=== PATIENT | female | born 1945 | race Caucasian/White ===

== ENCOUNTER → 2016-09-12 | Outpatient (CLI) | payer OTHER ==
[~2016-09-12] VITALS: Ht 157.5 cm; Wt 66.5 kg
[~2016-09-12] MED LIST: B-12 SQ; CLONAZEPAM 1 MG1 M1 PO; ESTRACE2 MG PO; FOLIC ACID 1 MG1 MG PO; IBUPROFEN 200200 M1 PO; IMURAN 50MG TAB50 M1 PO; LIALDA1.2 GM PO; LIPITOR 20 MG T20 M1 PO; MULTIVITAMINS1 EAC7 PO; NEURONTIN 300300 M1 PO; PRAVACHOL40 MG PO; PREDNISONE 2.52.5 MG PO; TRAMADOL 50 MG50 MG PO; TYLENOL PM EX-1 EACH PO; VIACTIV MULTI-1 EACH PO; VIACTIV SOFT C1 EACH PO
[2016-09-12 10:56] VITALS: BP 126/61
== END | disposition home or self-care (01) ==
LOC: PAIN 09-11 08:49
DX: M25.511 Pain in right shoulder (principal); M54.9 Dorsalgia, unspecified; K21.9 Gastro-esophageal reflux disease without esophagitis; Z90.710 Acquired absence of both cervix and uterus

== ENCOUNTER → 2016-10-03 | Outpatient (CLI) | payer OTHER ==
[~2016-10-03] VITALS: Ht 157.5 cm; Wt 66.2 kg
[~2016-10-03] MED LIST changes: +APAP500 PO
--- NOTE | ~2016-10-03 | HPC ---
[facility] [address] [place] [address] PAIN MANAGEMENT CONSULTATION Name: HUSSAIN CORREIA [id number] Admission: 10/03/16 Attend Phys: Vineet Palacios DO Discharge: Date of : 43 Report #: [id number] THIS REPORT FOR: //name// CC: Vineet Denis MD DATE OF SERVICE: 10/03/2016 CHIEF COMPLAINT: Neck pain, right upper extremity pain and paresthesias. HISTORY OF PRESENT ILLNESS: As you know, the patient is a very pleasant 70-year-old female who has been seen by [facility] for cervical radiculopathy. The patient was started on gabapentin per her request at last visit as she did not wish to undergo interventional treatments. She indicates side effects to the gabapentin of somnolence, decreased mental acuity, disorientation and confusion when she escalated from 300 to 600 mg dose, even with a reduction back to 300 mg she is experiencing some side effects. She returns today to discuss treatment options. She does indicate the chiropractic manipulation has been somewhat beneficial in alleviating her symptoms and she wishes to follow a conservative course of treatment at this time. She denies injury or trauma that may have led to progression of pain. Other than the side effects to the gabapentin that is the only change in her medical history over the last little bit of time. ALLERGIES: SULFA. CURRENT MEDICATIONS: Prednisone, mesalamine, Estrace, multivitamin, ibuprofen, atorvastatin, calcium carbonate, gabapentin and acetaminophen. SOCIAL HISTORY: The patient denies tobacco, IV or illicit drug use. Admits to approximately 5 glasses of wine per week. She is retired. She is accompanied by her who is present in room today. PHYSICAL EXAMINATION: VITAL SIGNS: Blood pressure 115/54, pulse 74, respiratory rate 16, unlabored. The patient is 100% on room air, height 5 feet 2 inches tall, weight 146 pounds, BMI calculated 26.7. GENERAL: Well developed, well nourished, well-hydrated 70-year-old female appearing stated age, placing current pain score at around 1-2/10. HEENT: Normocephalic, atraumatic. Pupils equal, round, reactive to light. EXTREMITIES: Show no clubbing, no cyanosis, no edema. MUSCULOSKELETAL: Spurling's test remains positive. Cervical provocation testing including extension, rotation, lateral flexion all intensify cervical pain. Muscle bulk and tone equal and symmetrical in upper extremities. [address] [address] PAIN MANAGEMENT CONSULTATION Name: HUSSAIN CORREIA Room #: REG [facility]#: [id number] Admission: 10/03/16 Attend Phys: Vineet Palacios DO Discharge: Date of : 43 Report #: [id number] ASSESSMENT: 1. Symptomatic cervical radiculopathy. 2. Displacement of a cervical intervertebral disk with radiculopathy. 3. Cervical spondylosis with radiculopathy. 4. Cervical spinal stenosis. 5. Chronic intractable pain. 6. Medication intolerance. PLAN: 1. The patient returns today in followup visit having difficulty with gabapentin. She is not sure whether or not her pain has improved as the dizziness, disorientation and confusion she received with the 600 mg dose has made it impossible for her to function. She has reduced back to the 300 mg dose as reporting pain is 1-2/10, continues to experience paresthesias, but is also concerned about dizziness and disorientation. We have requested the patient discontinue the use of the gabapentin at this time, stop for the next 3 days, if her dizziness, disorientation and confusion improves gabapentin was the source, if no improvement in symptoms other work up needs to be begun. The patient will stop the gabapentin today. 2. The patient was provided samples of Lyrica. If she notes symptoms of gabapentin fade we can try her on Lyrica 50 mg dose 1 tab p.o. at bedtime for 7 nights then increase to 100 mg, if 100 mg is too disorientating and confusing she should use a 75 mg dose escalating only 25 mg at the first dose jump. She was given samples of these medications today. We will review efficacy at followup visit. 3. We did discuss the possibility of starting the patient on a cervical epidural injection. She wishes to delay these intervention treatments until which time her pain intensifies or she is unable to take medications to control symptoms. We will discuss this at followup visit. By: [id number] Vineet Palacios DO /nt
[2016-10-03 10:13] VITALS: BP 115/54
== END ==
LOC: PAIN 08:59
DX: M47.22 Other spondylosis with radiculopathy, cervical region (principal); M48.02 Spinal stenosis, cervical region; G89.29 Other chronic pain; Z87.891 Personal history of nicotine dependence

== ENCOUNTER → 2017-09-18 | Outpatient (CLI) | payer OTHER ==
[~2017-09-18] VITALS: Ht 157.5 cm; Wt 67.0 kg
[~2017-09-18] MED LIST changes: +MOBIC15 MG PO; +ROXICODONE5 MG PO
--- NOTE | ~2017-09-18 | HPC ---
[facility] [address] [place] [address] PAIN MANAGEMENT CONSULTATION Name: HUSSAIN CORREIA Room #: [facility] [id number] Admission: 09/18/17 Attend Phys: Vineet Palacios DO Discharge: Date of : 43 Report #: [id number] THIS REPORT FOR: //name// CC: Vineet Denis MD DATE OF SERVICE: 09/18/2017 CHIEF COMPLAINT: Neck pain, right upper extremity pain with paresthesias. HISTORY OF PRESENT ILLNESS: As you know, the patient is a very pleasant 71-year-old female who returns today in followup visit requesting to discuss treatment options for cervical radicular symptoms. She indicates pain begins in the neck, radiates to the right arm all the way down into the hand. 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 She places current pain score 5-6/10. She states riding in a car, turning her head, looking down using her right upper extremity exacerbate symptoms; ice packs, rest tend to improve pain. She has been referred back to our clinic to discuss treatment options. The patient states she has sought chiropractic manipulation and massage therapy, which provided transient improvement in symptoms, no long-term therapy. She returns requesting a cervical epidural injection under fluoroscopic guidance to address pain as well as requesting the possibility of beginning medication management to address symptoms as we await improvement from either epidural injections or surgical options. ALLERGIES: SULFA. CURRENT MEDICATIONS: Tylenol ES 500 mg once a day, calcium carbonate 1 tab per day, atorvastatin 20 mg per day, ibuprofen 200 mg 3 times a day, multivitamin 1 tab per day, Estrace 2 mg once a day, Lialda 1.2 grams 2 tablets per day, prednisone 2.5 mg once a day. SOCIAL HISTORY: The patient denies tobacco, IV or illicit drug use. Admits to approximately 5 glasses of wine per week. She is retired. She is accompanied by her who is present in the room today. PQRS: The patient has osteoarthritis, no rheumatoid arthritis. She places pain intensifying to 6/10. She is not a fall risk, has not had a fall in last 3 months. She is not on blood thinners. She is not treated for hypertension. She has not been on opioids for greater than 6 weeks. She has a low assessment risk for opioid dependency. Functional assessment tool 54/70 indicating severe interference of daily activities secondary to pain. [address] [address] PAIN MANAGEMENT CONSULTATION Name: HUSSAIN CORREIA Room #: REG [facility] [place].#: [id number] Admission: 09/18/17 Attend Phys: Vineet Palacios DO Discharge: Date of : 43 Report #: [id number] PHYSICAL EXAMINATION: VITAL SIGNS: Blood pressure 120/64, pulse 85, respiratory rate 20, unlabored. The patient is 98% on room air. Height 5 feet 2 inches tall, weight 147.8 pounds, BMI calculated 27.0. GENERAL: Well-developed, well-nourished, well-hydrated 71-year-old female appearing her stated age, placing current pain score 5-6/10. HEENT: Normocephalic, atraumatic. Pupils equal, round, reactive to light. Extraocular muscles are intact. Sclerae nonicteric without injection. NEUROLOGIC: Cranial nerves 2-12 grossly intact. Speech is fluent. LUNGS: Clear. No wheeze, rhonchi or rales. CARDIOVASCULAR: Regular. No appreciable gallop, no rub. ABDOMEN: Soft, nontender. EXTREMITIES: Show no clubbing, no cyanosis, no edema. MUSCULOSKELETAL: Upper extremity strength is symmetrical 5/5, some giveaway strength noted with biceps flexion and triceps extension on the right when compared to left. Spurling's test positive on the right. Muscle bulk and tone equal and symmetrical in upper extremities. Deep tendon reflexes are symmetrical at biceps, brachioradialis and triceps. ASSESSMENT: 1. Cervical radiculopathy. 2. Displacement of a cervical intervertebral disk with radiculopathy. 3. Cervical spondylosis with radiculopathy. 4. Cervical spinal stenosis. 5. Chronic intractable pain. PLAN: 1. The patient has returned today in followup visit with what appears to be recurrent cervical radicular symptoms involving right upper extremity. This is not dissimilar to the evaluation we had on 10/03/2016. We have discussed with the patient treatment options for cervical radicular symptoms. These would include physical therapy, stretching exercise, core strengthening. We discussed medication management, the addition of a neuropathic pain medication. We discussed cervical epidural injections and surgical options. After reviewing the risks and benefits of all proposed treatment options, the patient requested a cervical epidural injection. The patient was advised risks and benefits of a cervical epidural injection. These risks include but not necessarily limited to bleeding, bruising, infection, worsening pain, no relief of pain, also risk of temporary or permanent muscle weakness, temporary or permanent nerve damage, possible paralysis and . The patient states she understood and wished to proceed. 2. The patient was provided a prescription of Roxicodone 5 mg dose 1 tab p.o. q.8h. p.r.n. for pain, I have given the patient #60 tablets, no refills. The patient will try this medication and utilize it only when her pain is intensified. She is not to utilize medication prophylactically. She was given [facility] [address] [place] [address] PAIN MANAGEMENT CONSULTATION Name: BRENHUSSAIN RAE Room #: REG [facility]#: [id number] Admission: 09/18/17 Attend Phys: Vineet Palacios DO Discharge: Date of : 43 Report #: [id number] tablets for 30 days' worth of medication management minimum. 3. We will see the patient back in followup visit on an as needed basis for cervical epidural injection and discuss other treatment options. <ELECTRONICALLY SIGNED> By: Vineet Palacios DO 09/24/17 1403 0807 1131 Vineet Palacios DO /nt
--- NOTE | ~2017-09-18 | P ---
[facility] [address] PROCEDURE REPORT Name: HUSSAIN CORREIA Room #: REG [facility]#: [id number] Admission: 09/18/17 Attend Phys: Vineet Palacios DO Discharge: Date of : 43 Report #: [id number] THIS REPORT FOR: //name// CC: Vineet Denis MD DATE OF SERVICE: 09/18/2017 DESCRIPTION OF PROCEDURE: C7-T1 cervical epidural steroid injection under fluoroscopic guidance. This is the first procedure of the first series that the patient is undergoing. After obtaining written consent, the patient was taken back to the fluoroscopy suite and placed in a prone position with separate pillows under chest and forehead to decrease cervical lordosis. The skin overlying the cervical area was prepped and draped in an aseptic fashion. The C7-T1 vertebral interspace was identified by AP fluoroscopy. The skin and subcutaneous tissue overlying the target site of injection was anesthetized using 3 mL of 1% lidocaine. A 20-gauge 3-1/2-inch Tuohy needle was advanced under fluoroscopic guidance toward the epidural space using a midline approach. The epidural space was identified using a loss of resistance to air technique. After negative aspiration for heme or cerebrospinal fluid, a total of 1 mL of Omnipaque was injected. A cervical epidurogram was confirmed using AP and oblique fluoroscopy. After negative aspiration for heme or cerebrospinal fluid, 5 mL of a solution containing 2 mL 40 mg per mL, 80 mg total triamcinolone, 3 mL lidocaine 1% was injected in increments. Contrast spread was noted from posterior epidural space. The needle was then retracted approximately residential and the needle track was flushed with 1 mL of 1% lidocaine. There were no apparent new sensory deficits in the upper extremities present following the procedure. A sterile bandage was placed over the injection site. The heart rate, pulse oximetry and blood pressure were continuously monitored after the procedure. There were no apparent complications. The patient tolerated the procedure well and was carefully escorted in the recovery room in stable condition. After meeting discharge criteria, the patient was discharged home. <ELECTRONICALLY SIGNED> By: Vineet Palacios DO 09/24/17 1403 0807 [id number] Vineet Palacios DO /nt
[2017-09-18 10:23] VITALS: BP 120/64
== END | disposition home or self-care (01) ==
LOC: PAIN 07:07
DX: M50.10 Cervical disc disorder with radiculopathy, unspecified cervical region (principal); M47.22 Other spondylosis with radiculopathy, cervical region; M48.02 Spinal stenosis, cervical region; G89.29 Other chronic pain; Z79.899 Other long term (current) drug therapy; Z88.2 Allergy status to sulfonamides; Z79.891 Long term (current) use of opiate analgesic

== ENCOUNTER → 2017-10-16 | Outpatient (CLI) | payer OTHER ==
[~2017-10-16] VITALS: Ht 157.5 cm; Wt 68.8 kg
--- NOTE | ~2017-10-16 | HPC ---
[facility] [place] [address] PAIN MANAGEMENT CONSULTATION Name: HUSSAIN CORREIA [facility] [id number] Admission: 10/16/17 Attend Phys: Vineet Palacios DO Discharge: Date of : 43 Report #: [id number] THIS REPORT FOR: //name// CC: Vineet BELLO DATE OF SERVICE: 10/16/2017 REFERRING PHYSICIAN: Dr. Félix Bello. CHIEF COMPLAINT: Neck pain, right upper extremity pain and paresthesias, low back pain, left lower extremity pain and paresthesias. HISTORY OF PRESENT ILLNESS: As you know, the patient is a pleasant 71-year-old female with multiple pain generators, one involving the cervical region for which we have attempted epidural injections with good benefit, second is her low back, likely due to spinal stenosis. She has had both issues continuing for some time. Her neck improved significantly with cervical epidural injection. She is not experiencing low back pain, but does report today that she has had swelling and calf pain on the left side, pain right behind the knee radiating down the leg. She has had increasing swelling that is significant enough, that it is noticed by her . She comes today with increasing left lower extremity pain with changes in skin color, texture and swelling in the lower extremity on the left. ALLERGIES: SULFA. CURRENT MEDICATIONS: Meloxicam, oxycodone, acetaminophen, calcium carbonate, atorvastatin, multivitamin, estradiol, Lialda, prednisone. SOCIAL HISTORY: The patient denies tobacco, alcohol, IV or illicit drug use. She is retired, retired years ago. She is accompanied by her present in room today. IMAGING: No new imaging available. PQRS: The patient has osteoarthritis, no rheumatoid arthritis. She is rating pain today 2-3/10. She is not a fall risk, has not had a fall in the last 3 months. She is not on blood thinner. She is not treated for hypertension. She has not been on opioids for longer than 6 weeks. She has a low opioid risk assessment. Her functional assessment indicates pain interference of 32/70, moderate. PHYSICAL EXAMINATION: VITAL SIGNS: Blood pressure 124/65, pulse 77, respiratory rate 16, unlabored. The patient is 98% on room air. Height 5 feet 2 inches tall, weight 151.[address] [address] PAIN MANAGEMENT CONSULTATION Name: HUSSAIN CORREIA Room #: REG [facility].#: [id number] Admission: 10/16/17 Attend Phys: Vineet Palacios DO Discharge: Date of : 43 Report #: [id number] pounds, BMI calculated 27.7. GENERAL: Well-developed, well-nourished, well-hydrated 71-year-old female appearing her stated age, placing current pain score at 2-3/10. HEENT: Normocephalic, atraumatic. Pupils equal, round, reactive to light. Extraocular muscles are intact. NEUROLOGIC: Speech is fluent. The patient deemed a good historian. LUNGS: Clear, no wheeze, rhonchi or rales. CARDIOVASCULAR: Regular. No appreciable gallop, no rub. ABDOMEN: Soft, mildly obese, normoactive bowel sounds. EXTREMITIES: Show no clubbing, no cyanosis. There is 2+ nonpitting left lower extremity edema. There is some noted rubor and color changes over the skin of the left lower extremity. MUSCULOSKELETAL: The patient has a mildly positive Homans sign on the left, negative right. There appears to be normal function of the left lower extremity. Seated straight leg raising negative. Supine straight leg raising positive. Jacki's test negative. Modified Gaenslen's positive for axial back pain. Ankle clonus negative. Babinski is negative. ASSESSMENT: 1. Left calf pain with increasing swelling. 2. Lumbar radiculopathy. 3. Displacement of lumbar intervertebral disk with radiculopathy. 4. Lumbosacral spondylosis with radiculopathy. 5. Lumbar degeneration. 6. Facet arthropathy of the lumbar spine. 7. Chronic intractable pain. PLAN: 1. The patient has returned today in followup visit with increasing swelling in the left lower extremity. There are significant changes in the edema. When comparing left lower extremity over right, 2+ nonpitting on the left, no edema on the right. She has a mildly positive possible Homans sign, which is concerning for DVT. The patient has indicated no changes in her breathing. She does have a history of some congestive heart failure though, her breathing is normal and there is no edema in other areas. The patient has been somewhat sedentary with increased pain. I am concerned with a possibility of DVT. Recommend the patient undergo ultrasound of the left lower extremity. I have provided the patient a referral to undergo this procedure today. We wish to evaluate this further in hopes of discovering a DVT early so that the patient does not have issues with possible pulmonary emboli. The patient will undergo the study as quickly as possible. 2. In regards to patient's low back pain, lower extremity symptoms, we have discussed possibility of epidural injection. We would like to delay this epidural injection until which time the patient has this evaluation for the potential of DVT left lower extremity. There is also a strong possibility the patient is beginning to experience some congestive heart failure issues and she [address] [place] [address] PAIN MANAGEMENT CONSULTATION Name: HUSSAIN CORREIA Room #: REG [facility].#: [id number] Admission: 10/16/17 Attend Phys: Vineet Palacios DO Discharge: Date of : 43 Report #: [id number] may ultimately need to seek cardiac evaluation. We will delay the epidural injection until the patient undergoes imaging if DVT study is normal, we would then be discussing the possibility of having her return for an epidural injection at our next appointment time next week. If DVT study is positive, she will be initiated on anticoagulants and this will preclude us from injection therapies in the future. We will adjust based on findings of the DVT. 3. We will have the patient return to our clinic in 1 week, assuming we can have her undergo an epidural injection. We will keep you apprised of the findings from the DVT study noted above. <ELECTRONICALLY SIGNED> By: Vineet Palacios DO 10/23/17 0833 [id number] Vineet Palcaios DO /nt
[2017-10-16 10:16] VITALS: BP 124/65
== END ==
LOC: PAIN 06:18
DX: M47.27 Other spondylosis with radiculopathy, lumbosacral region (principal); M77.32 Calcaneal spur, left foot; M51.36 Other intervertebral disc degeneration, lumbar region; M51.16 Intervertebral disc disorders with radiculopathy, lumbar region; M12.88 Other specific arthropathies, not elsewhere classified, other specified site; M79.601 Pain in right arm; M79.89 Other specified soft tissue disorders; M54.2 Cervicalgia; M54.5 Low back pain; G89.4 Chronic pain syndrome

== ENCOUNTER → 2018-04-29 | Outpatient (CLI) | payer OTHER ==
[~2018-04-29] VITALS: Ht 157.5 cm; Wt 67.0 kg
[~2018-04-29] MED LIST changes: -APAP500 PO; +BIOTIN5000 MC1 PO; +FLUTICASONE PRO16 GM NASAL; +HAIR FORMULA T1 EACH PO; +IBUPROFEN 600600 M1 PO; +ILEVRO1.7 ML OPHTHALMIC; +OMEPRAZOLE40 MG PO; +PRED FORTE 1% EY5 M1 OPHTHALMIC; +VOLTAREN GEL 1100 G2 TOP
--- NOTE | ~2018-04-29 | HPC ---
[facility] [place] [address] PAIN MANAGEMENT CONSULTATION Name: HUSSAIN CORREIA Room #: REG [facility].#: [id number] Admission: 04/29/18 Attend Phys: Vineet Palacios DO Discharge: Date of : 43 Report #: [id number] THIS REPORT FOR: //name// CC: Jared Denis M.D. Physician staff DATE OF SERVICE: 04/29/2018 CHIEF COMPLAINT: Low back pain, bilateral lower extremity pain. HISTORY OF PRESENT ILLNESS: As you know, the patient is a very pleasant 72-year-old female who returns today in followup visit with low back pain, lower extremity pain with paresthesias. The patient has done very well with previous epidural injections noticing based on the past injection 70% improvement in overall pain. Unfortunately, the patient's symptoms have begun to return. She is placing pain score 2/10; states the pain is tenderness, numbness and tingling; exacerbated with rising from a sleeping position, using certain chairs and bending; improves with medications, cold compresses and epidural injections. She returns today in followup visit to undergo lumbar epidural injection under fluoroscopic guidance to address lumbar radicular symptoms. She denies any new injury or trauma that may have led to symptom development. The patient does indicate that she is undergoing a scan of her gallbladder in the next couple of days to evaluate for possible gallbladder dysfunction leading to chronic right upper quadrant abdominal pain. She is scheduled to undergo the procedure, but has yet to complete this process. 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 ALLERGIES: SULFA. CURRENT MEDICATIONS: Oxycodone 5 mg every 6 hours p.r.n. for pain, Tylenol ES 500 mg 2 tabs b.i.d., calcium carbonate 1 tab per day, atorvastatin 20 mg per day, multivitamin 1 tab per day, estradiol 2 mg once a day, Lialda 1.2 grams 2 tabs once a day, prednisone 2.5 mg 1/2 tab per day. SOCIAL HISTORY: The patient denies tobacco, alcohol, IV or illicit drug use. She is retired, retired years ago. She is accompanied by her present in room today. IMAGING: No new imaging available. PQRS: The patient has known osteoarthritis of the low back. No rheumatoid arthritis. She is not a fall risk, has not had a fall in the last 3 months. She is not on blood thinner. She is not treated for hypertension. She is not on any chronic opioid medication. She is a low risk for opioid addiction. She [address] [address] PAIN MANAGEMENT CONSULTATION Name: HUSSAIN CORREIA Room #: REG [facility].#: [id number] Admission: 04/29/18 Attend Phys: Vineet Palacios DO Discharge: Date of : 43 Report #: [id number] is placing pain impact score functional impact at 32/70, moderate interference of daily activities. PHYSICAL EXAMINATION: VITAL SIGNS: Blood pressure 124/53, pulse is 82, respiratory rate 16 and unlabored, the patient 99% on room air. Height 5 feet 2 inches tall, weight 147.6 pounds, BMI calculated at 27.0. GENERAL: Well-developed, well-nourished, well-hydrated 72-year-old female appearing her stated age, placing current pain score at approximately 2-3/10. HEENT: Normocephalic, atraumatic. Pupils equal, round, reactive to light. EXTREMITIES: Show no clubbing, no cyanosis, no edema. MUSCULOSKELETAL: Seated straight leg raising negative. Supine straight leg raising positive. Jacki's test negative. Modified Gaenslen's positive for axial low back pain. Ankle clonus negative. Babinski is negative. There is noted 1+ to 2+ nonpitting lower extremity edema bilaterally. ASSESSMENT: 1. Symptomatic lumbar radiculopathy. 2. Lumbosacral spondylosis with radiculopathy. 3. Lumbar degeneration. 4. Chronic intractable pain. PLAN: 1. The patient returns today in followup visit requesting to undergo a lumbar epidural injection under fluoroscopic guidance. We have agreed to have the patient undergo the procedure today. She has done very well with previous epidural injections, hopeful to see similar improvement today. The patient has been advised of the risks and the benefits of the procedure. These risks include but not necessarily limited to bleeding, bruising, infection, worsening of pain, no relief of pain, also risk of temporary or permanent muscle weakness, temporary or permanent nerve damage, possible paralysis and . The patient states she understood and wished to proceed. 2. No medication changes made at today's visit. The patient will continue current medical therapy as previously prescribed. 3. We will see the patient back in followup visit on an as needed basis for possible next in the series of lumbar epidural injections or to address any other pain generator that may exist. PROCEDURE NOTE DESCRIPTION OF PROCEDURE: L5-S1 paramedian epidural steroid injection under fluoroscopic guidance. This is the first procedure of the second series that the patient is undergoing. After obtaining written consent, the patient was taken back to the fluoroscopy [address] [address] PAIN MANAGEMENT CONSULTATION Name: HUSSAIN CORREIA Room #: REG [facility]#: [id number] Admission: 04/29/18 Attend Phys: Vineet Palacios DO Discharge: Date of : 43 Report #: [id number] suite, placed in a prone position with pillow under the abdomen to decrease lumbar lordosis. The skin overlying the lumbosacral area was then prepped and draped in aseptic fashion. The L5-S1 vertebral interspace was then identified by AP fluoroscopy. The skin and subcutaneous tissue overlying the target site of injection was anesthetized with 3 mL 1% lidocaine. A 20-gauge, 3-1/2-inch Tuohy needle was then advanced under fluoroscopic guidance towards the epidural space using a paramedian approach. The epidural space was identified using loss of resistance to air technique. After negative aspiration for heme or cerebrospinal fluid, a total of 0.5 mL of Omnipaque was injected. A lumbar epidurogram was confirmed using both AP and lateral fluoroscopy. After negative aspiration for heme or cerebrospinal fluid, 5 mL of a solution containing 2 mL 40 mg per mL 80 mg total of triamcinolone, 3 mL of lidocaine 1% was injected in increments. Contrast spread was noted in posterior epidural space. The needle was then retracted approximately half way and needle tract flushed with 1 mL of 1% lidocaine. Needle was then removed. There were no apparent sensory or motor deficits in the lower extremity following the procedure. A sterile bandage was placed over the injection site. The heart rate, pulse, oximetry and blood pressure were continuously monitored after the procedure. There were no apparent complications. The patient tolerated the procedure well and was carefully escorted to the recovery room in stable condition. There were no apparent complications. After meeting discharge criteria, the patient was then discharged home. <ELECTRONICALLY SIGNED> By: Vineet Palacios DO 04/30/18 0814 [id number] 23 Vineet Palacios DO /nt
[2018-04-29 10:40] VITALS: BP 124/53
== END | disposition home or self-care (01) ==
LOC: PAIN 08:43
DX: M51.16 Intervertebral disc disorders with radiculopathy, lumbar region (principal); M47.27 Other spondylosis with radiculopathy, lumbosacral region; G89.29 Other chronic pain; M19.90 Unspecified osteoarthritis, unspecified site; I10 Essential (primary) hypertension; Z88.2 Allergy status to sulfonamides; Z79.899 Other long term (current) drug therapy; Z87.891 Personal history of nicotine dependence

== ENCOUNTER → 2018-06-11 | Outpatient (CLI) | payer OTHER ==
[~2018-06-11] VITALS: Ht 157.5 cm; Wt 65.0 kg
--- NOTE | ~2018-06-11 | HPC ---
[facility] [place] [address] PAIN MANAGEMENT CONSULTATION Name: HUSSAIN CORREIA Room #: REG [facility] Vic.#: [id number] Admission: 06/11/18 Attend Phys: Vineet Palacios DO Discharge: Date of : 43 Report #: [id number] THIS REPORT FOR: //name// CC: Jared Denis DATE OF SERVICE: 06/11/2018 REFERRING PHYSICIAN: Félix Denis. CHIEF COMPLAINT: Neck pain and right upper extremity pain with paresthesias. HISTORY OF PRESENT ILLNESS: As you know, the patient is a very pleasant 72-year-old female who returns today in followup visit with ongoing neck pain and right upper extremity pain with paresthesias. The patient indicates her pain has progressively worsened. She indicates that she is currently being evaluated for issues of retinal changes concerning that the patient may have potential vision changes. She returns today in followup visit stating she has an appointment with the retina specialist on , but is requesting a possible cervical epidural injection to address cervical radicular symptoms. She did very well with previous lumbar epidural injection and is having no significant pain from that area, but is having continued cervical radicular pain for which she seeks possible injection. She has suffered no new injury, no new trauma. ALLERGIES: SULFA. CURRENT MEDICATIONS: Oxycodone, Tylenol ES, calcium carbonate, atorvastatin, multivitamin, estradiol, Lialda, prednisone. SOCIAL HISTORY: The patient denies tobacco, alcohol, IV or illicit drug use. She is retired, retired years ago. She is accompanied by her , present in room today. IMAGING: No new imaging available. PQRS: The patient has known osteoarthritis of the neck, low back, bilateral hips and knees. No rheumatoid arthritis. She is not a fall risk. She has not had a fall in the last 3 months. The patient is not on any blood thinners. She is not treated for hypertension. She is not on chronic opioids and does have a low risk for opioid addiction. She is placing pain impact at 32/70 indicating a moderate interference of daily activities secondary to pain. PHYSICAL EXAMINATION: VITAL SIGNS: Blood pressure 120/67, pulse is 88, respiratory rate 14 and [facility] [address] [place] [address] PAIN MANAGEMENT CONSULTATION Name: HUSSAIN CORREIA Room #: REG [facility].#: [id number] Admission: 06/11/18 Attend Phys: Vineet Palacios DO Discharge: Date of : 43 Report #: [id number] unlabored. The patient is 99% on room air. Height 5 feet 2 inches tall, weight 143.2 pounds, BMI calculated 26.2. GENERAL: Well-developed, well-nourished, well-hydrated 72-year-old female appearing stated age, placing current pain score 7/10. HEENT: Normocephalic, atraumatic. Pupils equal, round, reactive to light. EXTREMITIES: Show no clubbing, no cyanosis, no edema. MUSCULOSKELETAL: Upper extremity strength appears equal and symmetrical 5/5. She is intact to light touch from C5 through T1 dermatomes. The patient does have positive Spurling's test noted today. Deep tendon reflexes are symmetrical. ASSESSMENT: 1. Cervical radiculopathy. 2. Cervical spondylosis with radicular symptoms. 3. Recurrent pain. PLAN: 1. The patient returns today in followup visit where we have discussed at length the possibility of undergoing a cervical epidural injection. I have voiced concern about the use of steroids and the face down position that the patient will have to be in to undergo the procedure, as these both can increase intraocular pressure and given the recent findings of her retina examination, there is some separation of the retina noted. The patient has an appointment with her retina specialist on and I would recommend that we delay the epidural injection, until which time we have a clear definitive diagnosis of her retina issues, so that the possibility of increasing intraocular pressure with face down position and with a steroid exposure will not potentially exacerbate her retinal issues. The patient is amenable to this suggestion. 2. I have provided the patient with a refill prescription of oxycodone 5 mg dose 1 tab p.o. q. 6 hours p.r.n. for pain. I have given the patient #120 tablets. I have advised the patient to take the medication only when pain is intolerable, not to rely on the medication prophylactically. She is to watch for side effects of somnolence, decreased mental acuity, disorientation, confusion and severe constipation. If she notes any side effects, contact to our clinic. 3. The patient will gain clearance from her retina specialist to be able to position face down in a prone position for up to 10 minutes at a time to undergo a cervical epidural injection and to gain clearance that it is acceptable for the patient to undergo steroid exposure, which has a potential to increase intraocular pressure. If she is able to gain these authorizations, we would be more than happy to provide the patient with an injection as early as Saturday, the day after her retina evaluation. By: [id number] Vineet Palacios DO /nt
[2018-06-11 10:29] VITALS: BP 120/67
--- NOTE | 2018-06-11 10:54 | NUR ---
Pain Clinic Assessment: 1. History of Osteoarthritis: Not Applicable History of Rheumatoid Arthritis: Not Applicable 2. Height: 5 ft. 2 in. 157.5 cm. Weight: 143.2 lb. oz. 64.955 kg. Patient's BMI: 26.2 3. Vital Signs: BP: 120/67 Pulse: 88 Resp: 14 Temp: 02 Sat: 99 ECG Mon: 4. Pain Intensity: 7 5. Fall Risk: Dizziness: Y Needs help standing or walking: N Fallen in the last 3 months: N Fall risk comments: 6. Patient on Blood Thinner: None 7. History of Hypertension: N 8. Opioid Therapy greater than 6 weeks: N Opiate Contract Signed: 9. Risk Assessment Tool Provided: LOW RISK 0/3 10. Functional Assessment Tool: 11. Recreational Drug Use: Never Drug Type: Tobacco Use: Former Smoker Tobacco Type: Amount or Packs/day: How Many Years: Alcohol Use: Yes Frequency: Special Occasions Quant:
== END ==
LOC: PAIN 07:00
DX: M47.22 Other spondylosis with radiculopathy, cervical region (principal); Z79.899 Other long term (current) drug therapy

== ENCOUNTER → 2020-12-20 | Outpatient (CLI) | payer OTHER ==
[~2020-12-20] VITALS: Ht 157.5 cm; Wt 65.7 kg
[~2020-12-20] MED LIST changes: +FLONASE 0.05%50 MCG NARES; +LORAZEPAM 0.50.5 MG PO; +VITAMIN D250 MCG PO
--- NOTE | ~2020-12-20 | HPC ---
[facility] [place] [address] [address] [place] [address] PAIN MANAGEMENT CONSULTATION Name: HUSSAIN CORREIA Room #: REG [facility].#: [id number] Admission: 12/20/20 Attend Phys: Vineet Palacios DO Discharge: Date of : 43 Report #: [id number] THIS REPORT FOR: cc: Jared Figueroa MD, David A. MD Johnson, James E. DO ~ cc: Dr. Félix Salazar DATE OF SERVICE: 12/20/2020 REFERRING PHYSICIAN: Dr. Félix Salazar. CHIEF COMPLAINT: Low back pain. HISTORY OF PRESENT ILLNESS: As you know, the patient is a very pleasant 74-year-old female with longstanding history of multiple pain generators. We have seen the patient for neck pain due to facet arthropathy and the low back pain due to facet arthropathy. She has been lost followup visit since 06/11/2018 where she was seen to treat her neck pain. She has been living in [place] over the last year to distance herself due to COVID-19 concerns. They have recently returned to the [place] area and she has been experiencing increasing axial back pain. The pain is exacerbated with activity, improves with rest and relaxation. She has tried [id number] medications without benefit. She sought evaluation through her PCP who referred the patient on to our clinic to discuss interventional treatment options. She places current pain score at 3/10. States her pain is aching and constant in sensation, tends to be worse in the a.m. upon arising also while riding in a car. She states that cold compresses and TENS units tend to improve pain. She states that she attempted to increase nonsteroidal anti-inflammatories, but due to her ulcerative colitis, she had to discontinue that activity. She did note benefit with their use. She has been referred back to our clinic to discuss axial back pain and treatment options. ALLERGIES: SULFA. CURRENT MEDICATIONS: Vitamin B2 50 mcg per day, fluticasone 1 spray each nostril per day, lorazepam 0.5 mg p.o. at bedtime, atorvastatin 20 mg per day, Tylenol PM Extra Strength 1 tablet p.o. at bedtime, multivitamin 1 tablet per day, estradiol 2 mg per day, mesalamine 1.25 mg twice a day. SOCIAL HISTORY: The patient denies tobacco, alcohol or IV or illicit drug use. She is retired, retired years ago, accompanied by her present in room today. IMAGING: No new imaging available. PQRS: The patient has known arthritic changes of the cervical spine, lumbar [address] [address] PAIN MANAGEMENT CONSULTATION Name: HUSSAIN CORREIA Room #: REG [facility]#: [id number] Admission: 12/20/20 Attend Phys: Vineet Palacios DO Discharge: Date of : 43 Report #: [id number] spine, bilateral hips and knees. No rheumatoid arthritis. She is not a fall risk, has not had a fall in last 3 months. She is not on blood thinners nor is she treated for hypertension. She is not on chronic opioids, has a low opioid addiction potential based on assessment tool. Pain impact is 26/70, mild to moderate interference of daily activities secondary to pain. PHYSICAL EXAMINATION: VITAL SIGNS: Blood pressure 123/60, pulse 79, respiratory rate 16 and unlabored. The patient 100% on room air. Height 5 feet 2 inches tall, weight 144.8 pounds, BMI calculated 26.5. GENERAL: Well-developed, well-nourished, well-hydrated 74-year-old female appearing stated age, pain is rated today 3/10. HEENT: Normocephalic and atraumatic. Pupils are equal, round and responsive. She is wearing a mask in compliance with COVID-19 regulations. LUNGS: Appear clear. No wheeze, rhonchi, no rales. CARDIOVASCULAR: Regular. No appreciable gallop, no rub. ABDOMEN: Soft. EXTREMITIES: Show no clubbing, no cyanosis. No appreciable edema. MUSCULOSKELETAL: The patient has palpatory tenderness over the paraspinal musculature of lower lumbar spine, no spinous process tenderness. Seated straight leg raising negative. Supine straight leg raising negative. Fabere's test is negative. Modified Gaenslen's positive for axial low back pain. Ankle clonus negative. Babinski is negative. She is intact to light touch from L1 through S2 dermatomes. Deep tendon reflexes are symmetrical at patella and Achilles. Muscle bulk and tone is equal and symmetrical in comparing lower extremities. Lumbar provocation testing including extension, rotation, lateral flexion all intensify axial back pain consistent with facet arthropathy. ASSESSMENT: 1. Lumbosacral spondylosis without radiculopathy or myelopathy. 2. Facet arthropathy, lumbar spine. 3. Lumbar degeneration. 4. Chronic intractable low back pain. PLAN: 1. Based on today's physical exam and history the patient has provided, the description the patient uses in regard to pain as well as location of symptoms. Her symptoms are presently presenting the likely source of the patient's pain is facet joints at the lower lumbar level. We do not have recent imaging of the lumbar spine to help determine the extent of pathology that we do have previous MRIs, which shows fairly significant arthritic changes at L4-L5, L5-S1 based on MRI imaging dated 12/2017. The patient is easily able to localize her symptoms directly over the lower back consistent with facet arthropathy pain. This in conjunction with the fact that the propagating factors are consistent with facet generated symptoms, helps bolster the diagnosis. After a long discussion about the physical exam and the findings of that exam and how they correlate to her [facility] [address] [place] [address] PAIN MANAGEMENT CONSULTATION Name: BRENHUSSAIN RAE Room #: REG [facility]#: [id number] Admission: 12/20/20 Attend Phys: Vineet Palacios DO Discharge: Date of : 43 Report #: [id number] current symptoms, we then discussed treatment options following was discussed with the patient today. We discussed physical therapy, stretching exercises, core strengthening as a way to treat symptoms. We discussed medication management, though we were precluded from using the medication of choice nonsteroidal anti-inflammatories due to the patient's underlying ulcerative colitis. We discussed a diagnostic intraarticular facet injections. We discussed medial branch nerve blocks, radiofrequency lesioning as a treatment course and finally discussed surgical options with the patient to address symptoms. After reviewing risks and benefits of all proposed treatment options, the patient chose to move forward with diagnostic intraarticular facet injections. 2. The patient was advised we will begin the authorization process to obtain approvals for the patient to undergo bilateral L4-L5, L5-S1 intra-articular diagnostic facet injections. We will be obtaining this authorization as quickly as possible. I did advise the patient this could take anywhere from 4-7 working days. Once this authorization has been obtained, we will have the patient return to undergo diagnostic intra-articular facet injections L4-L5 and L5-S1. We have placed the patient on a tentative appointment of next week. If this appointment needs to be altered, we will do so and contact the patient. 3. No medication changes made at today's visit. The patient will continue current medical therapy as prior prescribed. 4. We wish to thank the referring physician for the opportunity to see this patient again in consultation. Again, we wish to thank you for the opportunity to see the patient. We will keep you apprised of response to treatment. By: [id number] Vineet Palacios DO /nt
[2020-12-20 09:28] VITALS: BP 126/60
--- NOTE | 2020-12-20 09:51 | NUR ---
Pain Clinic Assessment: 1. History of Osteoarthritis: BACK RIGHT SHOULDER History of Rheumatoid Arthritis: Not Applicable 2. Height: 5 ft. 2 in. 157.5 cm. Weight: 144.8 lb. oz. 65.681 kg. Patient's BMI: 26.5 3. Vital Signs: BP: 126/60 Pulse: 79 Resp: 16 Temp: 02 Sat: 100 ECG Mon: 4. Pain Intensity: 3 5. Fall Risk: Dizziness: N Needs help standing or walking: N Fallen in the last 3 months: N Fall risk comments: 6. Patient on Blood Thinner: None 7. History of Hypertension: N 8. Opioid Therapy greater than 6 weeks: N Opiate Contract Signed: 9. Risk Assessment Tool Provided: LOW RISK 0 10. Functional Assessment Tool: 11. Recreational Drug Use: Never Drug Type: Tobacco Use: Former Smoker Tobacco Type: Amount or Packs/day: How Many Years: Alcohol Use: Yes Frequency: Special Occasions Quant: 1
== END ==
LOC: PAIN 07:04
PROVIDERS: ATTEND Anesthesiology Pain Medicine
DX: M47.817 Spondylosis without myelopathy or radiculopathy, lumbosacral region (principal); M51.36 Other intervertebral disc degeneration, lumbar region; G89.4 Chronic pain syndrome; Z79.899 Other long term (current) drug therapy; Z79.891 Long term (current) use of opiate analgesic; Z88.2 Allergy status to sulfonamides

== ENCOUNTER → 2020-12-27 | Outpatient (CLI) | payer OTHER ==
[~2020-12-27] VITALS: Ht 157.5 cm; Wt 65.3 kg
[~2020-12-27] MED LIST changes: +ESTRACE1 MG PO; -ESTRACE2 MG PO
[2020-12-27 12:34] VITALS: BP 126/52
--- NOTE | 2020-12-27 12:47 | NUR ---
Pain Clinic Assessment: 1. History of Osteoarthritis: BACK RIGHT SHOULDER History of Rheumatoid Arthritis: Not Applicable 2. Height: 5 ft. 2 in. 157.5 cm. Weight: 144.0 lb. oz. 65.318 kg. Patient's BMI: 26.3 3. Vital Signs: BP: 126/52 Pulse: 83 Resp: 14 Temp: 02 Sat: 99 ECG Mon: 4. Pain Intensity: 4 5. Fall Risk: Dizziness: N Needs help standing or walking: N Fallen in the last 3 months: N Fall risk comments: 6. Patient on Blood Thinner: None 7. History of Hypertension: N 8. Opioid Therapy greater than 6 weeks: N Opiate Contract Signed: 9. Risk Assessment Tool Provided: LOW RISK 0 10. Functional Assessment Tool: 11. Recreational Drug Use: Never Drug Type: Tobacco Use: Former Smoker Tobacco Type: Amount or Packs/day: How Many Years: Alcohol Use: Yes Frequency: Quant:
--- NOTE | 2021-01-03 08:01 | HPC ---
[facility] [place] [place] [address] PAIN MANAGEMENT CONSULTATION Name: HUSSAIN CORREIA Room #: REG HANK [facility].#: [id number] Admission: 12/27/20 Attend Phys: Vineet Palacios DO Discharge: Date of : 43 Report #: [id number] THIS REPORT FOR: cc: Jared Figueroa MD, David A. MD Johnson, James E. DO ~ cc: Félix Salazar DATE OF SERVICE: 12/27/2020 CHIEF COMPLAINT: Axial back pain. HISTORY OF PRESENT ILLNESS: As you know, the patient is a very pleasant 75-year-old female returning today in followup visit to undergo bilateral L4-L5, L5-S1 diagnostic intraarticular facet injections under fluoroscopic guidance. The patient has been complaining of axial back pain due to facet arthropathy for the past year, but due to COVID-19 concerns, she did not seek evaluation. She returned to the [place] area where she sought evaluation. She was referred back to our clinic to discuss treatment options. We saw the patient in consultation on 12/20/2020, diagnosed with facet arthropathy of the lumbar spine and facet generated lumbar pain and established today's appointment to undergo bilateral L4-L5, L5-S1 intra-articular facet injections. She returns today in followup visit with pain score 4/10. Pain is exacerbated with arising in the morning, sitting in a car and riding at long distances. Cold compresses, TENS units, and medications tend to improve pain. ALLERGIES: SULFA. CURRENT MEDICATIONS: See chart. SOCIAL HISTORY: The patient denies tobacco, alcohol, or IV or illicit drug use. She is retired, retired years ago, unaccompanied today. IMAGING: No new imaging available. PQRS: The patient has known arthritic changes of the cervical spine, lumbar spine, bilateral hips and knees. No rheumatoid arthritis. She is not a fall risk, has not had a fall in last 3 months. She is not on blood thinners nor is she treated for hypertension. She is not on chronic opioids, has a low opiate addiction potential based on our assessment tool. Pain impact remains 26-70, mild to moderate interference of daily activities secondary to pain. PHYSICAL EXAMINATION: VITAL SIGNS: Blood pressure 126/52, pulse 83, respiratory rate 14 and unlabored. The patient is 99% on room air. Height 5 feet 2 inches tall, weight 144 pounds, BMI calculated 26.3. GENERAL: Well-developed, well-nourished, well-hydrated 75[place] [address] PAIN MANAGEMENT CONSULTATION Name: HUSSAIN CORREIA Room #: REG [facility]#: [id number] Admission: 12/27/20 Attend Phys: Vineet Palacios DO Discharge: Date of : 43 Report #: [id number] appearing stated age. Pain is rated today 4/10. HEENT: Normocephalic, atraumatic. Speech is fluent. She is wearing a mask in compliance with COVID-19 regulations. EXTREMITIES: Show no clubbing, no cyanosis. No appreciable edema. MUSCULOSKELETAL: Lower extremity strength equal and symmetrical 5/5. Seated straight leg raising negative. Supine straight leg raising negative. Lumbar provocation testing is met with increasing pain. Modified Gaenslen's positive for axial low back pain. ASSESSMENT: 1. Lumbosacral spondylosis without radiculopathy or myelopathy. 2. Facet arthropathy of lumbar spine. 3. Lumbar degeneration. 4. Chronic intractable pain. PLAN: 1. The patient returns today in followup visit to undergo diagnostic bilateral L4-L5, L5-S1 intraarticular facet injections under fluoroscopic guidance. The patient has been advised risks and benefits of the procedure. These risks include but are not necessarily limited to bleeding, bruising, infection, worsening pain, no relief of pain, and also risk of temporary or permanent muscle weakness, temporary or permanent nerve damage, possible paralysis, and . The patient states she understood and wished to proceed. 2. No medication changes made at today's visit. The patient will continue current medical therapy as prior prescribed. 3. We will plan to see the patient back in followup visit in approximately 1 month. At that time, review the efficacy of today's diagnostic injections and determine if next in the series of diagnostic injections would be necessary or moving forward with medial branch blocks and radiofrequency lesioning. PROCEDURE NOTE: DESCRIPTION OF PROCEDURE: Bilateral L4-L5, L5-S1 diagnostic intraarticular facet injections under fluoroscopic guidance. This is the first procedure of the first series that the patient is undergoing. After obtaining written consent, the patient was taken back to the fluoroscopy suite and placed in a prone position with a pillow under the abdomen to decrease the lumbar lordosis and to facilitate needle entry into the facet joints. The skin overlying the lumbosacral area was prepped and draped in an aseptic fashion. AP and lateral fluoroscopic imaging was obtained. Optimal position of the fluoroscope occurred when the joint line was first visualized. The facet joints were identified radiographically directed adjacent to the superior articular process of the caudad vertebrae. The skin overlying the [address] [address] PAIN MANAGEMENT CONSULTATION Name: HUSSAIN CORREIA Room #: REG [facility]ANK Goodman#: [id number] Admission: 12/27/20 Attend Phys: Vineet Palacios DO Discharge: Date of : 43 Report #: [id number] target site(s) of injection was anesthetized using 3 mL of 1% lidocaine. A 22-gauge 3-1/2 inch spinal needle with a bent tip was advanced towards the L4-L5 and L5-S1 facet joint(s) on the right and left sides under fluoroscopic guidance. The firm posterior capsule had its characteristic feel and the needle was advanced a few additional millimeters beyond the joint capsule into the joint space, but not into the articular cartilage. After the joint space was entered and aspiration was negative for heme or CSF, 0.2 mL of Omnipaque was injected demonstrating a characteristic facet arthrogram. After negative aspiration for heme or CSF, 1.5 mL of solution containing 2 mL 40 mg per mL 80 mg total triamcinolone and 4 mL of bupivacaine 0.5% was slowly injected at each of 4 facets. The needle(s) was then removed. There were no apparent complications. The patient tolerated the procedure well and was carefully escorted to the recovery room in stable condition. The VAS was 4/10 before the procedure and 3/10 ten minutes after the procedure. After meeting discharge criteria, the patient was discharged home. <ELECTRONICALLY SIGNED> By: Vineet Palacios DO 01/03/21 [id number] Vineet Palacios DO /nt
== END | disposition home or self-care (01) ==
LOC: PAIN 11:55
PROVIDERS: ATTEND Anesthesiology Pain Medicine
DX: M47.817 Spondylosis without myelopathy or radiculopathy, lumbosacral region (principal); M47.816 Spondylosis without myelopathy or radiculopathy, lumbar region; M51.36 Other intervertebral disc degeneration, lumbar region; G89.29 Other chronic pain; M19.90 Unspecified osteoarthritis, unspecified site; Z98.890 Other specified postprocedural states; Z79.899 Other long term (current) drug therapy; Z88.2 Allergy status to sulfonamides; Z87.891 Personal history of nicotine dependence